=== PATIENT | female | born 1965 | race Caucasian/White ===

== ENCOUNTER → 2017-08-22 | Day surgery (SDC) | payer OTHER ==
[~2017-08-22] VITALS: Ht 152.4 cm; Wt 68.0 kg
[~2017-08-22] MED LIST: BUPIVACAINE HCL PF 0.5% 10 ML VIAL ONE; CEPH-460 PO; CIPR500T4 PO; CITA20TA4 PO; CLON-352 PO; ENAL10TA7 PO; HYDR-3288 PO; HYDR12.56 PO; LEVO50TA4 PO; LIDOCAINE HCL 2% 50 ML VIAL ONE; LORA0.5T PO; LOSA100T PO; MIDAZOLAM HCL 2 MG/2 ML VIAL ONE; NEOMYCIN/POLYMYXIN 1 ML G.U. IRRIGANT ONE; PYRI200T4 PO; THYR15 PO; TRAM50TA PO; VALA1TAB PO; ceFAZolin 1,000 MG/NS 100 ML IV SCH
[2017-08-22 12:15] VITALS: BP 110/62; PULSE 76; RESP 16; TEMP 98; O2SAT 97
--- NOTE | 2017-08-22 13:05 | MP ---
cc: Juan A Martin MD DATE OF OPERATION: 08/22/2017 PREOPERATIVE DIAGNOSIS: Right carpal tunnel syndrome. POSTOPERATIVE DIAGNOSIS: Right carpal tunnel syndrome. DESCRIPTION OF PROCEDURE: The patient was brought to the operating room and placed supine on the operating table. After the correct site and side of surgery were verified by members of each team in the room multiple times including the patient and myself and after adequate preoperative markings and preoperative written consent was verified by everyone and after adequate preoperative timeout was performed to everyone's satisfaction and after adequate IV sedation was achieved, the right upper extremity was prepped and draped in the traditional sterile surgical fashion, a 50:50 mixture of 2% plain lidocaine and 0.5% plain Marcaine was infiltrated in the skin and subcutaneous tissue at the base of the palm and into the carpal tunnel. The limb was exsanguinated using an Live wrap and a highly placed well-padded axillary tourniquet was inflated to 200 mmHg for a total of 9 minutes. A longitudinally oriented incision within the skin crease was made and carried down through skin and subcutaneous tissue. The palmar fascia was retracted in opposite directions. The transverse carpal ligament was identified and transected to the ulnar side of its midline from its proximal-most to its distal-most extent completely freeing the carpal tunnel contents. There was a moderately hypertrophic tenosynovium, but otherwise no mass effect or any other anatomic abnormalities identified. Thorough irrigation with a liters worth of saline was performed and then the skin edges were reapproximated using running 4-0 nylon suture. The hand and arm were thoroughly cleansed and dried. Betadine, Adaptic dressing was applied on top of the limb, followed by a bulky soft dressing. The axillary tourniquet was released after 9 minutes and the hand and all the fingers became immediately soft, pink and warm and had brisk capillary refill of less than 2 seconds. A circumferential dressing was placed in the usual fashion. The patient was awakened from anesthesia and transported to the Postanesthesia Care Unit awake and in stable condition. Sponge, needle and instrument counts were correct at the end of the case as reported by the nurses. Juan A Martin MD LCB/DL , 12:10 PM , 01:03 PM
--- NOTE | 2017-08-22 18:40 | EKG ---
Date Performed: 08/22/2017 Time Performed: 09:48:50 PTAGE: 52 years EKG: Sinus rhythm LOW QRS VOLTAGE IN PRECORDIAL LEADS BORDERLINE ECG when compared to prior EKG, patient is no longer tachycardic PREVIOUS TRACING : 01/08/2013 15.01 DOCTOR: Rosario Larios Interpretating Date/Time 08/22/2017 18:39:55
== END | disposition home or self-care (01) ==
LOC: PHSDC 09:06
PROVIDERS: ATTEND Orthopaedic Surgery Hand Surgery
DX: G56.01 Carpal tunnel syndrome, right upper limb (principal); R94.31 Abnormal electrocardiogram [ECG] [EKG]
CPT/HCPCS: 01810; 64721; 93005; J0690; J2250

== ENCOUNTER → 2017-09-05 | Day surgery (SDC) | payer OTHER ==
[~2017-09-05] VITALS: Ht 152.4 cm; Wt 68.0 kg
[~2017-09-05] MED LIST changes: +ACETAMINOPHEN/HYDROcodone 325 MG/5 MG TAB ONE; +CHLORHEXIDINE GLUCONATE 2 % 1 PACK (2 CLOTHS) TOPICAL PRN; -CIPR500T4 PO; -CLON-352 PO; -ENAL10TA7 PO; -HYDR12.56 PO; +LACTATED RINGER'S 1000 ML IV PRN; +LIDOCAINE HCL 1% PF 5 ML SYRINGE OTHER ONE; +METOPROLOL TARTRATE 25 MG TAB PO PRN; +POVIDONE IODINE 5% (ANTISEPSIS KIT) 4 APPLICATIONS EACH NARE PRN; +PROPOFOL 200 MG/20 ML AMP IV ONE; -PYRI200T4 PO; +SODIUM CHLORID 0.9% 500 ML IV PRN; -THYR15 PO
--- NOTE | 2017-09-05 11:30 | MP ---
cc: Juan A Martin MD DATE OF OPERATION: 09/05/2017 DATE OF OPERATION: 09/05/2017 PREOPERATIVE DIAGNOSIS: Left carpal tunnel syndrome. POSTOPERATIVE DIAGNOSIS: Left carpal tunnel syndrome. PROCEDURE PERFORMED: Left open carpal tunnel release. SURGEON: Juan A Martin III, PROCEDURE: The patient was brought to the operating room and placed supine on the operating table. After the correct site and side of surgery were verified by members of each team in the room multiple times including the patient and myself and, after adequate preoperative markings and preoperative written consent was verified by everyone in the room, and after preoperative timeout, preoperative antibiotics were given and IV sedation had been achieved, the left upper extremity was prepped and then re-prepped because of the patient's acrylic nails and allowed to dry with Betadine was performed. A 50:50 mixture of 2% plain lidocaine and 0.5% plain Marcaine was infiltrated in the skin and subcutaneous tissue at the base of the palm, into the carpal tunnel. The limb was exsanguinated with an Live wrap and a highly placed, well padded axillary tourniquet was inflated to 200 mmHg for a total of 8 minutes. Longitudinally oriented incision within the base of the palm was made, carried down through skin and subcutaneous tissue. Blunt dissection was performed. The palmar fascia was retracted in opposite directions. The transverse carpal ligament was identified and transected in its entirety to the ulnar side of its midline from its proximal-most to its distal-most extents, completely freeing the carpal tunnel contents. The median nerve was slightly pale, but otherwise not compromised. There was some moderately hypertrophic tenosynovial layer as well. There were no other anatomic abnormalities identified. There was no mass effect. Thorough irrigation with saline was performed. The skin edges were reapproximated using running 4-0 nylon suture. Betadine and Adaptic dressings were applied, followed by a bulky soft dressing. The axillary tourniquet was released after 8 minutes and all fingers and the hand and all the fingers on the left became immediately soft, pink and warm, had brisk capillary refill of less than 2 seconds. A circumferential dressing was applied in usual fashion. The patient was awakened from anesthesia and transported to the postanesthesia care unit awake and in stable condition at the end of the case. Sponge, needle and instrument counts were correct at the end of the case as reported by the nurses in the room. Juan A Jennifer Martin MD Test _Provider EDI/RUDY , 10:55 AM , 11:29 AM
[2017-09-05 11:40] VITALS: BP 123/88; PULSE 69; RESP 16; TEMP 98; O2SAT 99
== END | disposition home or self-care (01) ==
LOC: PHSDC 08:32
PROVIDERS: ATTEND Orthopaedic Surgery Hand Surgery
DX: G56.02 Carpal tunnel syndrome, left upper limb (principal)
CPT/HCPCS: 01810; 64721; J0690; J2250; J3010; J7120